=== PATIENT | male | born 1940 | race Caucasian/White ===

== ENCOUNTER 2017-10-07 10:10 | Day surgery (SDC) | payer OTHER ==
[~2017-10-07] VITALS: Ht 180.3 cm; Wt 77.1 kg
[~2017-10-07 10:10] MED LIST: ACETAMINOPHEN325 M1 PO; BACTRIM,SEPT1 TABLET PO; CALCIUM + VITA1 EAC2 PO; CARDIZEM30 MG PO; CYMBALTA60 MG PO; DHEA25 M1 PO; ELIQUIS2.5 MG PO; KLONOPIN0.5 M1 PO; METHYLPHENIDATE20 M1 PO; NABI650T PO; OXAYDO7.5 MG PO; OXYCODONE HCL15 MG PO; PERCOCET 7.51 TABLET PO; ROCALTROL0.25 MCG PO; ROXICODONE5 MG PO; VISINE TEARS DR15 ML BOTH EYES; VITAMIN D31000 UNI2 PO; ZOFRAN4 MG PO
[2017-10-07 10:45] VITALS: BP 127/83
[2017-10-07 10:59] LABS: HEMATOCRIT 43.3 % (38.0-50.0); HEMOGLOBIN 13.8 G/DL (12.5-16.6); MCH 27.1 PG (29.0-34.0); MCHC 31.9 G/DL (30.0-36.0); MCV 84.9 FL (86-99); PLATELET COUNT 377 K/uL (156-360); RBC DIS.WIDTH-CV 20.6 % (11.8-14.6); RBC DIS.WIDTH-SD 60.7 % (39-53); WHITE BLOOD COUNT 10.1 K/uL (4.1-10.2)
[2017-10-07 11:10] LABS: CHLORIDE 99 MEQ/L (99-109); POTASSIUM 4.7 MEQ/L (3.7-5.4); SODIUM 138 MEQ/L (136-147)
[2017-10-07 11:15] LABS: CREATININE 6.1 MG/DL (0.6-1.3); GFR ESTIMATE (CALCULATED) 10 mL/min/ (58.99-99999); GLUCOSE 96 mg/dL (70-99); UREA NITROGEN (BUN) 44 mg/dL (9-23)
[2017-10-07] MEDS ORDERED: NORCO 5/3251 TABLET PO (15:12)
[2017-10-07 17:04] VITALS: BP 120/72
[2017-10-07 17:11] VITALS: BP 107/76
== END 2017-10-07 17:35 | disposition home or self-care (01) ==
LOC: SDC 10:10
PROVIDERS: Surgery
PROC: 0WPG03Z Removal of Infusion Device from Peritoneal Cavity, Open Approach (ICD-10-PCS; principal; 2017-10-07)
PROC: 0WHG03Z Insertion of Infusion Device into Peritoneal Cavity, Open Approach (ICD-10-PCS; principal; 2017-10-07)
DX: T85.611A Breakdown (mechanical) of intraperitoneal dialysis catheter, initial encounter (principal); Y81.2 Prosthetic and other implants, materials and accessory general- and plastic-surgery devices associated with adverse incidents; I12.0 Hypertensive chronic kidney disease with stage 5 chronic kidney disease or end stage renal disease; N18.6 End stage renal disease; Z99.2 Dependence on renal dialysis; I48.91 Unspecified atrial fibrillation; I83.90 Asymptomatic varicose veins of unspecified lower extremity; Z79.01 Long term (current) use of anticoagulants
CPT/HCPCS: 80048; 85027; 87070; 87075; 87205; 87641; 93005; C1750; C1758; J1170; J2250; J3010; J3370; S0020

== ENCOUNTER 2017-11-12 13:24 | Inpatient (IN) | payer OTHER ==
[~2017-11-12] VITALS: Ht 180.3 cm; Wt 77.4 kg
[~2017-11-12 13:24] MED LIST changes: +CYMBALTA30 MG PO; -CYMBALTA60 MG PO; +NORCO 5/3251 TABLET PO
[2017-11-12 13:47] LABS: BASOPHIL (%) 0.4 % (0-1); BASOPHIL COUNT 0.1 K/uL (0-0.1); EOSINOPHIL (%) 0.7 % (0-5); EOSINOPHIL COUNT 0.1 K/uL (0-0.3); HEMATOCRIT 44.5 % (38.0-50.0); HEMOGLOBIN 14.4 G/DL (12.5-16.6); IMMATURE GRANULOCYTE (%) 0.3 % (0.0-0.7); LYMPHOCYTE COUNT 1.3 K/uL (1.0-2.8); MCH 27.5 PG (29.0-34.0); MCHC 32.4 G/DL (30.0-36.0); MCV 84.9 FL (86-99); MONOCYTE (%) 9.6 % (3-12); MONOCYTE COUNT 1.3 K/uL (0-0.8); NEUTROPHIL COUNT 10.4 K/uL (1.8-6.4); PLATELET COUNT 326 K/uL (156-360); RBC DIS.WIDTH-CV 19.5 % (11.8-14.6); RBC DIS.WIDTH-SD 58.7 % (39-53); RED BLOOD COUNT 5.24 M/uL (4.00-5.50); WHITE BLOOD COUNT 13.2 K/uL (4.1-10.2)
[2017-11-12 13:57] LABS: CHLORIDE 95 mEq/L (99-109); POTASSIUM 3.6 mEq/L (3.7-5.4); SODIUM 136 mEq/L (136-147)
[2017-11-12 13:58] LABS: GLUCOSE 102 mg/dL (70-99)
[2017-11-12 14:02] LABS: CREATININE 6.5 mg/dL (0.6-1.3); GFR ESTIMATE (CALCULATED) 9 mL/min/ (58.99-99999)
[2017-11-12 14:03] LABS: UREA NITROGEN (BUN) 42 mg/dL (9-23)
[2017-11-12 14:38] LABS: ALBUMIN 3.4 g/dL (3.2-4.8)
[2017-11-12 14:41] LABS: TOTAL PROTEIN 7.5 g/dL (6.4-8.3)
[2017-11-12 14:43] LABS: TOTAL BILIRUBIN 0.3 mg/dL (0.0-1.0)
[2017-11-12 14:44] LABS: ALKALINE PHOSPHATASE 67 IU/L (3-129)
[2017-11-12 14:46] LABS: AST (GOT) 18 IU/L (2-34)
[2017-11-12 14:47] LABS: ALT (GPT) 11 IU/L (3-49); DIRECT BILIRUBIN 0.2 mg/dL (0.0-0.3)
[2017-11-12] MEDS ORDERED: CIPRO500 MG PO (15:36)
[2017-11-12] MEDS ORDERED: SENOKOT,SENN1 TABLET PO (15:37)
[2017-11-12 17:25] VITALS: BP 110/63
[2017-11-12 21:18] VITALS: BP 120/71
[2017-11-12 22:51] VITALS: BP 134/80
[2017-11-13] VITALS (7 sets, daily range): BP systolic 97–127; BP diastolic 57–83
[2017-11-13 06:12] LABS: HEMATOCRIT 38.3 % (38.0-50.0); HEMOGLOBIN 12.5 G/DL (12.5-16.6); MCH 27.4 PG (29.0-34.0); MCHC 32.6 G/DL (30.0-36.0); PLATELET COUNT 315 K/uL (156-360); RBC DIS.WIDTH-CV 18.8 % (11.8-14.6); RBC DIS.WIDTH-SD 57.4 % (39-53); RED BLOOD COUNT 4.56 M/uL (4.00-5.50)
[2017-11-13 06:59] LABS: CHLORIDE 99 MEQ/L (99-109); CREATININE 6.8 MG/DL (0.6-1.3); GFR ESTIMATE (CALCULATED) 8 mL/min/ (58.99-99999); GLUCOSE 93 mg/dL (70-99); SODIUM 136 MEQ/L (136-147); UREA NITROGEN (BUN) 50 mg/dL (9-23)
[2017-11-13 17:27] LABS: APPEARANCE CLEAR ((CLEAR)); BILIRUBIN NEGATIVE; BLOOD MODERATE; COLOR YELLOW ((YELLOW)); GLUCOSE (STRIP) NEGATIVE; KETONES NEGATIVE; LEUKOCYTES NEGATIVE; NITRITE NEGATIVE; PROTEIN (STRIP) 100; SPECIFIC GRAVITY 1.014 (1.000-1.030); UROBILINOGEN 0.2 MG/DL (0.2-1.0)
[2017-11-13 17:33] LABS: BACTERIA NONE SEEN /HPF; EPITHELIAL CELLS RARE /HPF; MUCUS TRACE /LPF; UCUL ADDED? NO; WHITE BLOOD CELLS 0-5 /HPF (0-5)
[2017-11-14 03:31] VITALS: BP 127/83
[2017-11-14 05:49] LABS: BASOPHIL (%) 0.3 % (0-1); EOSINOPHIL COUNT 0.2 K/uL (0-0.3); HEMATOCRIT 38.7 % (38.0-50.0); HEMOGLOBIN 12.4 G/DL (12.5-16.6); IMMATURE GRANULOCYTE (%) 0.4 % (0.0-0.7); LYMPHOCYTE (%) 15.1 % (15-42); LYMPHOCYTE COUNT 1.6 K/uL (1.0-2.8); MCV 84.1 FL (86-99); MONOCYTE (%) 12.1 % (3-12); MONOCYTE COUNT 1.3 K/uL (0-0.8); NEUTROPHIL (%) 70.1 % (45-76); NEUTROPHIL COUNT 7.6 K/uL (1.8-6.4); PLATELET COUNT 342 K/uL (156-360); RBC DIS.WIDTH-CV 18.6 % (11.8-14.6); RBC DIS.WIDTH-SD 57.6 % (39-53); WHITE BLOOD COUNT 10.8 K/uL (4.1-10.2)
[2017-11-14 06:23] LABS: CHLORIDE 100 MEQ/L (99-109); CREATININE 7.2 MG/DL (0.6-1.3); GFR ESTIMATE (CALCULATED) 8 mL/min/ (58.99-99999); GLUCOSE 96 mg/dL (70-99); POTASSIUM 4.1 MEQ/L (3.7-5.4); SODIUM 137 MEQ/L (136-147); UREA NITROGEN (BUN) 53 mg/dL (9-23)
[2017-11-14 07:53] VITALS: BP 105/85
[2017-11-14 11:58] VITALS: BP 122/78
[2017-11-14 16:50] VITALS: BP 120/79
[2017-11-14 20:30] VITALS: BP 115/78
[2017-11-15 00:30] VITALS: BP 116/76
[2017-11-15 04:07] VITALS: BP 112/75
[2017-11-15 06:04] LABS: BASOPHIL (%) 0.4 % (0-1); EOSINOPHIL (%) 5.1 % (0-5); EOSINOPHIL COUNT 0.5 K/uL (0-0.3); HEMATOCRIT 37.5 % (38.0-50.0); HEMOGLOBIN 11.8 G/DL (12.5-16.6); IMMATURE GRANULOCYTE (%) 0.5 % (0.0-0.7); LYMPHOCYTE (%) 18.8 % (15-42); MCH 26.7 PG (29.0-34.0); MCHC 31.5 G/DL (30.0-36.0); MCV 84.8 FL (86-99); MONOCYTE (%) 12.4 % (3-12); MONOCYTE COUNT 1.3 K/uL (0-0.8); NEUTROPHIL (%) 62.8 % (45-76); NEUTROPHIL COUNT 6.7 K/uL (1.8-6.4); PLATELET COUNT 373 K/uL (156-360); RBC DIS.WIDTH-CV 18.6 % (11.8-14.6); RBC DIS.WIDTH-SD 57.2 % (39-53); RED BLOOD COUNT 4.42 M/uL (4.00-5.50); WHITE BLOOD COUNT 10.6 K/uL (4.1-10.2)
[2017-11-15 06:28] LABS: CHLORIDE 101 MEQ/L (99-109); CREATININE 6.8 MG/DL (0.6-1.3); GFR ESTIMATE (CALCULATED) 8 mL/min/ (58.99-99999); GLUCOSE 83 mg/dL (70-99); POTASSIUM 4.4 MEQ/L (3.7-5.4); SODIUM 137 MEQ/L (136-147); UREA NITROGEN (BUN) 55 mg/dL (9-23)
[2017-11-15 06:55] VITALS: BP 109/76
[2017-11-15 15:40] VITALS: BP 131/86
[2017-11-16 00:08] VITALS: BP 125/82
[2017-11-16 05:59] LABS: HEMATOCRIT 39.4 % (38.0-50.0); HEMOGLOBIN 12.4 G/DL (12.5-16.6); MCH 26.6 PG (29.0-34.0); MCHC 31.5 G/DL (30.0-36.0); MCV 84.4 FL (86-99); PLATELET COUNT 411 K/uL (156-360); RBC DIS.WIDTH-CV 18.6 % (11.8-14.6); RED BLOOD COUNT 4.67 M/uL (4.00-5.50); WHITE BLOOD COUNT 9.9 K/uL (4.1-10.2)
[2017-11-16 06:36] LABS: CHLORIDE 101 MEQ/L (99-109); CREATININE 6.8 MG/DL (0.6-1.3); GFR ESTIMATE (CALCULATED) 8 mL/min/ (58.99-99999); GLUCOSE 74 mg/dL (70-99); MAGNESIUM 1.7 mg/dl (1.3-2.7); POTASSIUM 4.6 MEQ/L (3.7-5.4); SODIUM 137 MEQ/L (136-147); UREA NITROGEN (BUN) 59 mg/dL (9-23)
[2017-11-16 07:05] VITALS: BP 132/77
[2017-11-16 15:05] VITALS: BP 117/76
[2017-11-17 06:39] LABS: CHLORIDE 103 MEQ/L (99-109); GFR ESTIMATE (CALCULATED) 8 mL/min/ (58.99-99999); GLUCOSE 76 mg/dL (70-99); POTASSIUM 4.5 MEQ/L (3.7-5.4); SODIUM 140 MEQ/L (136-147); UREA NITROGEN (BUN) 63 mg/dL (9-23); VANCOMYCIN, TROUGH 15.7 MCG/ML (10-20)
[2017-11-17 08:00] VITALS: BP 117/76
[2017-11-17 10:15] VITALS: BP 108/71
[2017-11-17 14:48] LABS: BASOPHIL (%) 0.3 % (0-1); EOSINOPHIL (%) 5.1 % (0-5); EOSINOPHIL COUNT 0.5 K/uL (0-0.3); HEMOGLOBIN 12.6 G/DL (12.5-16.6); IMMATURE GRANULOCYTE (%) 0.4 % (0.0-0.7); LYMPHOCYTE COUNT 1.5 K/uL (1.0-2.8); MCH 27.7 PG (29.0-34.0); MCHC 32.3 G/DL (30.0-36.0); MCV 85.7 FL (86-99); MONOCYTE (%) 11.5 % (3-12); MONOCYTE COUNT 1.2 K/uL (0-0.8); NEUTROPHIL (%) 67.7 % (45-76); NEUTROPHIL COUNT 6.8 K/uL (1.8-6.4); PLATELET COUNT 484 K/uL (156-360); RBC DIS.WIDTH-CV 18.7 % (11.8-14.6); RBC DIS.WIDTH-SD 58.8 % (39-53); RED BLOOD COUNT 4.55 M/uL (4.00-5.50); WHITE BLOOD COUNT 10.1 K/uL (4.1-10.2)
[2017-11-17 23:15] VITALS: BP 105/75
[2017-11-18 07:00] VITALS: BP 131/79
[2017-11-18] MEDS ORDERED: CEPHALEXIN500 MG PO (14:50)
[2017-11-18] MEDS ORDERED: VANCOMYCIN HCL1 GM IV (14:51)
[2017-11-18] MEDS ORDERED: PERCOCET 7.51 TABLET PO (14:53)
[2017-11-18 15:20] VITALS: BP 138/79
[2017-11-18 15:39] LABS: HEPATITIS B SURFACE ANTIBODY Nonreactive; HEPATITIS B SURFACE ANTIGEN Nonreactive
== END 2017-11-18 17:15 | DRG 981 ==
LOC: EME 13:24 → 5EAST 15:38 → EDOF 15:38 → ENRESERV 15:39 → 5EAST 17:01
PROVIDERS: Hospitalist; Internal Medicine; Internal Medicine Nephrology; Physician Assistant; Student in an Organized Health Care Education/Training Program
PROC: 0WPG03Z Removal of Infusion Device from Peritoneal Cavity, Open Approach (ICD-10-PCS; principal; 2017-11-13)
PROC: 02H633Z Insertion of Infusion Device into Right Atrium, Percutaneous Approach (ICD-10-PCS; 2017-11-17)
PROC: 5A1D70Z Performance of Urinary Filtration, Intermittent, Less than 6 Hours Per Day (ICD-10-PCS; 2017-11-17)
DX: T85.71XA Infection and inflammatory reaction due to peritoneal dialysis catheter, initial encounter (principal); N18.6 End stage renal disease; Y83.8 Other surgical procedures as the cause of abnormal reaction of the patient, or of later complication, without mention of misadventure at the time of the procedure; I12.0 Hypertensive chronic kidney disease with stage 5 chronic kidney disease or end stage renal disease; Z96.642 Presence of left artificial hip joint; Z96.653 Presence of artificial knee joint, bilateral; Z99.2 Dependence on renal dialysis; Z85.46 Personal history of malignant neoplasm of prostate; E87.2 Acidosis; Z86.718 Personal history of other venous thrombosis and embolism; Z79.01 Long term (current) use of anticoagulants; L02.211 Cutaneous abscess of abdominal wall; Z86.14 Personal history of Methicillin resistant Staphylococcus aureus infection; Q61.2 Polycystic kidney, adult type; Z90.81 Acquired absence of spleen; I49.3 Ventricular premature depolarization
CPT/HCPCS: 80048; 80076; 80202; 81003; 83605; 83735; 85025; 85027; 86706; 86850; 86900; 86901; 87040; 87070; 87075; 87205; 87340; 87493; 87641; 93005; 94799; 99281; 99285; C1750; C1894; J0690; J1170; J1644; J2250; J2270; J2405; J2543; J3010; J3370; J7030; J7050; S0020